=== PATIENT | female | born 1980 | race Hispanic/Latino ===

== ENCOUNTER → 2022-11-23 | Day surgery (SDC) | payer OTHER ==
[~2022-11-23] MED LIST: ACETAMINOPHEN-1 EAC4 PO; BUPIVACAINE HCL 0.5% INJ 30 ML VIAL INJ ONE; DEXAMETHASONE SOD PHOS INJ 4 MG/ML SDV ONE; FENTANYL CITRATE/PF 100MCG/2 ML INJ ONE; LIDOCAINE HCL 2% LOCAL INJ 5 ML SDV VIAL INJ ONE; MIDAZOLAM HCL 2 MG/2 ML VIAL ONE; MUPIROCIN 2% OINT 22 GM TUBE ONE; ONDANSETRON HCL INJ 2MG/ML 2ML 2 MG/ML VIAL ONE; POVIDONE IODINE 0.05% 0.05 % ML PO ONE; PROPOFOL IV EMULSION 10 MG/ML 20 ML VIAL ONE; SEVOFLURANE INHAL SOLN 250 ML PEN BTL ONE
[2022-11-23 08:15] VITALS: BP 125/76
== END | disposition home or self-care (01) ==
LOC: OR 07:39
PROVIDERS: ATTEND Plastic Surgery
DX: D17.1 Benign lipomatous neoplasm of skin and subcutaneous tissue of trunk (principal)
CPT/HCPCS: 22900; 81025; 88304; C1713; J0690; J1100; J2001; J2250; J2405; J2704; J3010